=== PATIENT | female | born 1950 | race African-American/Black ===

== ENCOUNTER 2017-04-11 06:41 | Outpatient (CLI) | payer MEDICARE ==
[~2017-04-11] VITALS: Ht 162.6 cm; Wt 74.8 kg
[2017-04-11] VITALS (11 sets, daily range): BP systolic 90–184; BP diastolic 82–111
[~2017-04-11 06:41] MED LIST: AMLO5TAB2 PO; CRESTOR20 MG PO; LEVO125T5 PO; METF500T4 PO; POTA10TA5 PO; SIMV40TA3 PO; [UNRECOGNIZED DRUG - CODE]
[2017-04-11] MEDS ORDERED: MILK1TAB PO (07:19)
[2017-04-11] MEDS ORDERED: LEVO50TA5 PO (07:19)
[2017-04-11] MEDS ORDERED: METO25TA4 PO (07:19)
[2017-04-11] MEDS ORDERED: LOSA100T6 PO (07:19)
[2017-04-11] MEDS ORDERED: MULT-91 PO (07:19)
[2017-04-11 07:58] LABS: BASO % 1 % (0-3); EOS % 2 % (0-3); HEMATOCRIT 36.2 % (36.0-47.0); HEMOGLOBIN 12.1 g/dL (12.0-15.5); LYMPH # 1.7 x10^3/uL (1.0-4.8); LYMPH % 43 % (24-48); MEAN CORPUSCULAR HEMOGLOBIN 30 pg (25-35); MEAN CORPUSCULAR HGB CONC 34 g/dL (31-37); MEAN CORPUSCULAR VOLUME 89 fL (79-100); MONO % 8 % (0-9); NEUT % 46 % (31-73); PLATELET COUNT 254 x10^3/uL (140-400); RED BLOOD COUNT 4.06 x10^6/uL (3.50-5.40); RED CELL DISTRIBUTION WIDTH 15.6 % (11.5-14.5)
[2017-04-11 07:59] LABS: PROTHROMBIN TIME PATIENT 12.5 SEC (11.7-14.0)
[2017-04-11] MEDS ORDERED: MIDAZOLAM HCL/PF 5 MG/5 ML VIAL. ONE (08:05)
[2017-04-11] MEDS ORDERED: LIDOCAINE 1% / SOD BICARB 8.4% 20 ML VIAL. IJ ONE ×2 (08:05→09:00)
[2017-04-11] MEDS ORDERED: fentaNYL PF VIAL 250 MCG/5 ML VIAL ONE (08:05)
[2017-04-11] MEDS ORDERED: MIDAZOLAM HCL/PF 5 MG/5 ML VIAL. IV ONE ×2 (08:45→09:00)
[2017-04-11] MEDS ORDERED: fentaNYL PF VIAL 250 MCG/5 ML VIAL IV ONE (09:00)
--- NOTE | 2017-04-11 09:10 | PDOC ---
MODERATE SEDATION ASSESSMENT RISKS/ALTERNATIVES Risks/Alternatives Risks and alternatives of this type of sedation and procedure discussed with: RISK/ALTERNATIVES: Patient H & P ON CHART H & P H & P on chart and reviewed for co-morbid conditions and appropriate labs. H&P ON CHART: Yes STATUS PREG STATUS ASSESSED: N/A MEDS/ALLERGIES REVIEWED Meds/Allergies Reviewed Medications and Allergies including time and route of recently administered narcotics and sedatives. MEDS/ALLERGIES REVIEWED: Yes ASA RATING ASA RATING: II AIRWAY ASSESSMENT Airway Assessment Airway patency, oral function limitations, presence of caps, crowns, dentures, partials, and ability to extend neck assessed. AIRWAY ASSESSMENT: Yes MALLAMPATI SCORE MALLAMPATI SCORE: II PRE-SEDATION ASSESSMENT PRE-SEDATION ASSESSMENT: Yes DAISHA HAYES MD Apr 11, 2017 09:10
--- NOTE | 2017-04-11 09:13 | PDOC1 ---
History and Physical Date of Procedure Date of Admission 04/11/17 Procedure Procedure Image guided liver bx Indication Indication 66 YO diabetic female with elevated LFTs Past Medical History Past Medical History See Nursing Pre Procedure PMH Past Surgical History Past Surgical History See Nursing Pre Procedure PSH Current Medications Current Medications Current Medications Lidocaine/Sodium Bicarbonate (Buffered Lidocaine 1%) 20 ml STK-MED ONCE IJ ; Start 04/11/17 at 08:05; Stop 04/11/17 at 08:06; Status DC Midazolam HCl (Versed) 5 mg STK-MED ONCE .ROUTE ; Start 04/11/17 at 08:05; Stop 04/11/17 at 08:06; Status DC Fentanyl Citrate (Fentanyl 5ml Vial) 250 mcg STK-MED ONCE .ROUTE ; Start at 08:05; Stop 04/11/17 at 08:06; Status DC Lidocaine/Sodium Bicarbonate (Buffered Lidocaine 1%) 20 ml 1X ONCE IJ Last administered on 04/11/17 09:05; Start 04/11/17 at 09:00; Stop 04/11/17 at 09:01 ; Status DC Midazolam HCl (Versed) 20 mg 1X ONCE IV ; Start 04/11/17 at 09:00; Stop at 09:01; Status DC Fentanyl Citrate (Fentanyl 5ml Vial) 100 mcg 1X ONCE IV Last administered on 09:07; Start 04/11/17 at 09:00; Stop 04/11/17 at 09:01; Status DC Active Scripts Active Reported Liver Complex Tablet (Milk Thistle/Nac/Dandel/Turmer) 1 Each Tablet 1 Each PO DAILY One Daily (Multivitamin) 1 Each Tablet 1 Each PO DAILY Levothyroxine Sodium 50 Mcg Tablet 50 Mcg PO DAILYAC Losartan Potassium 100 Mg Tablet 100 Mg PO DAILY Metoprolol Tartrate 25 Mg Tablet 25 Mg PO BID Metformin Hcl 500 Mg Tablet 1 Tab PO BID Allergies Allergies: Coded Allergies: No Known Drug Allergies (Unverified , 06/23/15) Physical Exam Vital Signs Vital Signs Date Time Temp Pulse Resp B/P (MAP) Pulse Ox O2 Delivery O2 Flow Rate FiO2 04/11/17 09:07 16 98 Room Air 04/11/17 09:02 52 04/11/17 08:59 4.0 04/11/17 07:31 98.3 165/111 (129) 98.3 Lungs: Clear to auscultation Heart: Regular rate Psych/Mental Status: Mental status NL Assessment Assessment Elevated LFTs Problems: Plan Plan Image guided liver bx DAISHA HAYES MD Apr 11, 2017 09:13
--- NOTE | 2017-04-11 09:15 | PDOC ---
Exam Cow Puncher Cow Puncher Marli Pre-Procedure Diagnosis Pre-Procedure Diagnosis 66 YO diabetic female with elevated LFTs Post-Procedure Diagnosis Post-Procedure Diagnosis Same Procedure Performed Procedure Performed CT guided liver bx Type of Anesthesia Type of Anesthesia Local + Mod sedation Estimated Blood Loss EBL: Minimal Specimens Specimans 3 18G core bx to path in formalin Condition of Patient Condition of Patient Stable. No apparent complication. Disposition Disposition Home from [facility] post recovery, if no problems. F/u with Dr Jain. Full report to follow. DAISHA HAYES MD Apr 11, 2017 09:15
--- NOTE | 2017-04-12 10:49 | RAD ---
CT-guided liver biopsy Indication: 66-year-old diabetic female with elevated LFTs of uncertain etiology. Image guided liver biopsy has been requested by GI. Anesthesia: 26 minutes moderate sedation was provided utilizing a total of 2 mg Versed and 100 mcg fentanyl, IV. The patient was appropriately monitored by a qualified independent observer throughout the time of moderate sedation. Consent: The procedure was explained in its entirety to the patient and/or the patient's designated insurance follow up representative by a member of the treatment team. This included a discussion of risks and benefits and acceptable alternatives to the procedure, as well as expected consequences of no treatment at all. Discussion of risks included, but was not limited to, those that are most frequent and those that are rare, but possibly severe or life-threatening, as well as the possibility of unforeseen complications. Procedure: Informed consent was obtained from the patient. She was placed supine on the CT scanner. Preliminary noncontrast CT images were obtained through liver. A skin site suitable for CT-guided biopsy of right lobe of liver was selected and marked. That area was prepped and draped in the usual sterile fashion. Conscious sedation was provided with IV Versed and fentanyl. Using aseptic technique, local anesthesia, and CT guidance, a 17-gauge guide needle was successfully introduced into posterior segment right lobe of liver. Three 18-gauge core biopsy samples were then obtained and were submitted in formalin to pathology. Hemostasis was achieved with autologous clot introduced through the biopsy guide needle, which was then removed. A sterile dressing was applied. Patient tolerated the procedure well without apparent complication. Completion CT images revealed no evidence of significant intraparenchymal, subcapsular, or perihepatic hemorrhage. Impression: Successful, uneventful CT-guided liver biopsy, as described. PQRS Compliance Statement: One or more of the following individualized dose reduction techniques was utilized for this procedure: 1. Automated exposure control. 2. Adjustment of MA and/or KV according to patient size. 3. Iterative reconstruction technique.
== END 2017-04-11 11:02 | disposition home or self-care (01) ==
LOC: INTRAD 06:41
PROVIDERS: ATTEND Internal Medicine Gastroenterology
DX: R79.89 Other specified abnormal findings of blood chemistry (principal); I10 Essential (primary) hypertension; E03.9 Hypothyroidism, unspecified; E11.9 Type 2 diabetes mellitus without complications; Z86.39 Personal history of other endocrine, nutritional and metabolic disease
CPT/HCPCS: 36415; 47000; 77012; 85027; 85610; C1892; J3010

== ENCOUNTER → 2017-05-28 | Outpatient (CLI) | payer MEDICARE ==
[~2017-05-28] MED LIST changes: +AMLO10TA2 PO; +LEVO50TA5 PO; +LIDOCAINE 1% / SOD BICARB 8.4% 20 ML VIAL. IJ ONE; +LIDOCAINE 2%/EPI 1:100,000 20 ML VIAL. IJ ONE; +LOSA100T6 PO; +METO25TA4 PO; +MILK1TAB PO; +MULT-91 PO; +URSO250T9 PO
[2017-05-28 11:34] VITALS: BP 140/90
--- NOTE | 2017-05-29 14:34 | PATHOLOGY ---
PATHOLOGY REPORT * * * * * * * * FINAL DIAGNOSIS: Breast tissue, right breast needle biopsy: - Small ancient fibroadenoma, with associated calcifications. - Mild duct ectasia and periductal stromal fibrosis, focal. COMMENT: There is no evidence of malignancy. (JPM:mgr; 05/29/2017) REPORT ELECTRONICALLY SIGNED BY: Nitin Soares M.D. DATE/TIME: 05/29/2017 14:33 * * * * * * * * GROSS PATHOLOGY: Received in formalin labeled "Emery Dash, right breast," are multiple needle cores of yellow-phillips fibrofatty tissue measuring 0.8 x 0.6 x 0.4 cm in aggregate dimensions. Also received is a plastic cassette containing multiple cores of yellow-phillips fibrofatty tissue measuring 1.9 x 1.5 x 0.6 cm in aggregate dimensions. The tissue in the cassette is transferred to cassette A1, and the remaining tissue is submitted in its entirety in cassette A2. The cold ischemic time is 6 minutes. The total formalin fixation time is 11 hours and 21 minutes. (JPM; 05/28/17) INITIAL CPT CODE(S): A; 72914 Professional services performed by [email or web address] [address] Technical services performed by [facility] at [address] [place] [address], [facility] [address] [address]. SPECIMEN(S) RECEIVED: A.Right breast calcifications CLINICAL HISTORY: Right breast calcifications PATIENT: EMERY DASH /AGE: 9 1950 (Age: 66) PATIENT #: [id number] ALT CASE #: SPECIMEN COLLECTION DATE: 05/28/2017 SPECIMEN RECEIVED DATE: 05/28/2017 [facility] - [address] [place] [address] - PHONE: [phone] * * * END OF REPORT * * *
--- NOTE | 2017-05-30 10:18 | RAD ---
Stereotactic right breast biopsy, 05/28/2017: History: Suspicious microcalcifications Outside mammograms demonstrated a cluster of suspicious microcalcifications in the right breast. A a preliminary straight lateral-medial view of the right breast performed today is correlated with outside images and shows that these calcifications lie inferolaterally at approximately the 7:00 location. Under local anesthesia, aseptic conditions and mammographic guidance the the vacuum-assisted biopsy instrument was passed into this region via a lateral approach. Multiple 19-gauge core samples were obtained. Digital specimen mammography showed that the targeted microcalcifications are present within the specimens. A biopsy marker was then deposited at the biopsy site. The biopsy instrument was removed and hemostasis obtained. Two-view postprocedural mammograms were obtained to document position of the biopsy marker. The targeted microcalcifications appear to have been completely removed. There are other scattered residual microcalcifications in other portions of the right breast. The patient tolerated the procedure well and left the department in good condition. The subsequent pathology report indicated the presence of a fibroadenoma with associated calcifications. The findings are considered to be concordant.
== END | disposition home or self-care (01) ==
LOC: MAMMO 11:07
PROVIDERS: ATTEND Surgery
DX: R92.8 Other abnormal and inconclusive findings on diagnostic imaging of breast (principal)
CPT/HCPCS: 19085; 77022; C1713; G0206; J3490; 77065

== ENCOUNTER 2017-07-07 06:46 | Emergency (ER) | payer MEDICARE ==
[~2017-07-07] VITALS: Ht 162.6 cm; Wt 74.8 kg
[~2017-07-07 06:46] MED LIST changes: -LIDOCAINE 1% / SOD BICARB 8.4% 20 ML VIAL. IJ ONE; -LIDOCAINE 2%/EPI 1:100,000 20 ML VIAL. IJ ONE; +MULT-223 PO; -MULT-91 PO
[2017-07-07 07:01] VITALS: BP 162/94
[2017-07-07] MEDS ORDERED: IBUP-1007 PO (07:11)
--- NOTE | 2017-07-07 07:11 | PHYS DOC ---
Past Medical History Past Medical History: Diabetes-Type II, Hypertension, Hypothyroid Past Surgical History: No Surgical History Alcohol Use: None Drug Use: None Adult General Chief Complaint Chief Complaint: HIP PAIN HPI HPI Patient is a 66 year old female who presents with left hip pain for 1 week. No known injury. Worsens with walking and laying on that side. She denies falls/trauma/fevers. She has not attempted any oral symptom controlling medication. You rubbed "muscle cream" over the affected area with some relief. Denies allergies to medication. She has not contacted her primary care physician, Dr. Marin, regarding the symptoms. Denies known history of arthritis, no redness or hotness over the area. Review of Systems Review of Systems Constitutional: Denies fever or chills [] Eyes: Denies change in visual acuity, redness, or eye pain [] HENT: Denies nasal congestion or sore throat [] Respiratory: Denies cough or shortness of breath [] Cardiovascular: denies chest pain GI: Denies abdominal pain, nausea, vomiting, bloody stools or diarrhea [] : Denies dysuria or hematuria [] Musculoskeletal: Denies back pain Integument: Denies rash or skin lesions [] Neurologic: Denies headache, focal weakness or sensory changes [] Allergies Allergies Allergies Coded Allergies Type Severity Reaction Last Updated Verified No Known Drug Allergies 06/23/15 No Physical Exam Physical Exam Constitutional: Well developed, well nourished, no acute distress, non-toxic appearance. [] HENT: Normocephalic, atraumatic, bilateral external ears normal, oropharynx moist, no oral exudates, nose normal. [] Eyes: PERRLA, EOMI, conjunctiva normal, no discharge. [] Neck: Normal range of motion, no tenderness, supple, no stridor. [] Cardiovascular:Heart rate regular with regular rhythm, no murmur [] Lungs & Thorax: Bilateral breath sounds clear to auscultation , no wheeze or crackles Abdomen: soft, no tenderness, no masses, no pulsatile masses. [] Skin: Warm, dry, no erythema, no rash. [] Back: No tenderness, no CVA tenderness, no SI joint ttp Extremities: No tenderness, no cyanosis, no clubbing, ROM intact, no edema. DP pulses intact bilaterally, wiggles toes, 5/5 bilateral hip flexors, pelvis stable, no point tenderness over the left hip area to palpation. Neurologic: Alert and oriented X 3, normal motor function, normal sensory function, no focal deficits noted. Pt is able to ambulate without assistance, favors the left hip when she walks Psychologic: Affect normal, judgement normal, mood normal. [] EKG EKG [] Radiology/Procedures Radiology/Procedures [] Course & Med Decision Making Course & Med Decision Making Pertinent Labs and Imaging studies reviewed. (See chart for details) without injury or fall, no ttp of the hip, amble to ambulate a bony defect is unlikely and favors a bursitis of the hip. I recommended antiinflammatories, ice packs over the area, lidoderm patch for local anagelsia. Strict return precautions given if she has worse symptoms, inability to walk, develops a fever , inability to move hip 2/2 to pain. She's to call Dr. Marin today to schedule follow-up appointment. Take ibuprofen scheduled for 3 days and then as needed. Lidoderm patch RX given, apply ice packs. Dragon Disclaimer Dragon Disclaimer This electronic medical record was generated, in whole or in part, using a voice recognition dictation system. Departure Departure Impression: Primary Impression: Hip pain, left Disposition: HOME, SELF-CARE Condition: STABLE Referrals: LORENZO MARIN MD (PCP) Patient Instructions: Hip Bursitis Scripts Ibuprofen (IBUPROFEN) 600 Mg Tablet 600 MG PO PRN Q6HRS Y for PAIN, #20 TAB take with food or milk Prov: ANA LIM MD 07/07/17 ANA LIM MD Jul 07, 2017 07:11
[2017-07-07] MEDS ORDERED: LIDOCAINE 5% TP (07:13)
[2017-07-07] MEDS ORDERED: KETOROLAC 60 MG/2 ML INJ. IM ONE (07:30)
[2017-07-07] MEDS ORDERED: LIDOCAINE (700MG/PATCH) PATCH. TD ONE (07:30)
== END 2017-07-07 07:25 | disposition home or self-care (01) ==
LOC: ER 06:46
DX: M25.552 Pain in left hip (principal); E11.9 Type 2 diabetes mellitus without complications; E03.9 Hypothyroidism, unspecified
CPT/HCPCS: 96372; 99283; J1885

== ENCOUNTER 2018-05-31 01:01 | Emergency (ER) | payer MEDICARE ==
[2018-05-31 02:26] LABS: ADD MAN DIFF? NO
[2018-05-31 02:29] LABS: BASO # 0.1 x10^3/uL (0.0-0.2); BASO % 2 % (0-3); EOS # 0.1 x10^3/uL (0.0-0.7); EOS % 2 % (0-3); HEMATOCRIT 35.7 % (36.0-47.0); HEMOGLOBIN 12.3 g/dL (12.0-15.5); LYMPH # 2.1 x10^3/uL (1.0-4.8); LYMPH % 41 % (24-48); MEAN CORPUSCULAR HEMOGLOBIN 29 pg (25-35); MEAN CORPUSCULAR HGB CONC 35 g/dL (31-37); MEAN CORPUSCULAR VOLUME 85 fL (79-100); MONO # 0.5 x10^3/uL (0.0-1.1); MONO % 9 % (0-9); NEUT # 2.4 x10^3uL (1.8-7.7); NEUT % 47 % (31-73); PLATELET COUNT 262 x10^3/uL (140-400); RED BLOOD COUNT 4.22 x10^6/uL (3.50-5.40); RED CELL DISTRIBUTION WIDTH 15.6 % (11.5-14.5); WHITE BLOOD COUNT 5.3 x10^3/uL (4.0-11.0)
[2018-05-31] MEDS: IV NORMAL SALINE 1000ML BAG 1,000 ML IV (02:30)
[2018-05-31 02:54] LABS: ANION GAP 11 (6-14); BLOOD UREA NITROGEN 13 mg/dL (7-20); BUN/CREATININE RATIO 14 (6-20); CALCIUM 9.2 mg/dL (8.5-10.1); CARBON DIOXIDE 26 mmol/L (21-32); CHLORIDE 102 mmol/L (98-107); CREATININE 0.9 mg/dL (0.6-1.0); GFR 75.3; GLUCOSE 133 mg/dL (70-99); POTASSIUM 3.4 mmol/L (3.5-5.1); SODIUM 139 mmol/L (136-145)
[2018-05-31 02:59] LABS: ALBUMIN 3.3 g/dL (3.4-5.0); ALBUMIN/GLOBULIN RATIO 0.6 (1.0-1.7); ALK PHOS 145 U/L (46-116); ALT (SGPT) 104 U/L (14-59); AST (SGOT) 49 U/L (15-37); LIPASE 157 U/L (73-393); TOTAL BILIRUBIN 0.6 mg/dL (0.2-1.0); TOTAL PROTEIN 8.7 g/dL (6.4-8.2)
[2018-05-31 03:44] LABS: BILIRUBIN,URINE NEGATIVE (NEG); CLARITY,URINE CLEAR; COLOR,URINE YELLOW; GLUCOSE,URINE NEGATIVE (NEG); NITRITE,URINE NEGATIVE (NEG); PH,URINE 6.5; PROTEIN,URINE NEGATIVE (NEG-TRACE)
[2018-05-31] MEDS: MECLIZINE HCL 12.5 MG TABLET. PO (03:47)
[2018-05-31 04:08] LABS: BACTERIA,URINE 0 /HPF (0-FEW); RBC,URINE 0 /HPF (0-2); SQUAMOUS EPITHELIAL CELL,UR OCC /LPF; WBC,URINE 0 /HPF (0-4)
== END 2018-05-31 05:46 | disposition home or self-care (01) ==
LOC: ER 01:01
DX: R42 Dizziness and giddiness (principal); J06.9 Acute upper respiratory infection, unspecified; R11.2 Nausea with vomiting, unspecified; R19.7 Diarrhea, unspecified; E03.9 Hypothyroidism, unspecified; I10 Essential (primary) hypertension; E11.9 Type 2 diabetes mellitus without complications
CPT/HCPCS: 36415; 70450; 71045; 80053; 81001; 83690; 85025; 93005; 96360; 96361; 96365; 99285-25; J7030; J8597

== ENCOUNTER 2018-06-08 17:59 | Emergency (ER) | payer MEDICARE, OTHER ==
[~2018-06-08] VITALS: Ht 162.6 cm; Wt 81.6 kg
[~2018-06-08 17:59] MED LIST changes: +IBUP-1007 PO; +LIDOCAINE 5% TP; +MECL12.52 PO; -METF500T4 PO; +METF500T5 PO; +POTA10TA12 PO; -POTA10TA5 PO
[2018-06-08 18:48] VITALS: BP 130/78
[2018-06-08] MEDS ORDERED: HYDROcodone/APAP 5/325MG 1 TAB TABLET PO ONE (19:15)
[2018-06-08] MEDS ORDERED: CYCL10TA2 PO (19:53)
[2018-06-08] MEDS ORDERED: HYDR-971 PO (19:53)
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
== END 2018-06-08 19:59 | disposition home or self-care (01) ==
LOC: ER 17:59
DX: M54.6 Pain in thoracic spine (principal); M25.561 Pain in right knee; E11.9 Type 2 diabetes mellitus without complications; I10 Essential (primary) hypertension; E03.9 Hypothyroidism, unspecified; V43.92XA Unspecified car occupant injured in collision with other type car in traffic accident, initial encounter; Y93.89 Activity, other specified; Y92.89 Other specified places as the place of occurrence of the external cause; Y99.8 Other external cause status
CPT/HCPCS: 72072; 73562; 99284

== ENCOUNTER → 2020-06-06 | Outpatient (CLI) | payer MEDICARE ==
[2020-02-27 11:00] VITALS: BP 171/92
[~2020-06-06] MED LIST changes: -AMLO10TA2 PO; +AMLO10TA8 PO; +AMLO5TAB10 PO; -AMLO5TAB2 PO; +ASPI-630 PO; +CYCL10TA2 PO; +HYDR-3164 PO; +HYDR12.58 PO; +LEVO112T49 PO; +LOSA-73 PO; +LOSA100T14 PO; -LOSA100T6 PO; -MECL12.52 PO; +MECL12.573 PO; +METF500T16 PO; -METF500T5 PO; -MULT-223 PO; +MULT-629 PO; +PANT40TA77 PO; +POTA20TA4 PO; +SIMV40TA18 PO; -SIMV40TA3 PO
--- NOTE | 2020-06-06 11:54 | RAD ---
MR#: [id number] Date of Study: 06/06/2020 Ordering Physician: ENRIKE ALCALA, Referring Physician: HUGH SHEPHERD Tech: RT Bhavesh Ramirez) (N) APPROVED REPORT Test Type: Exercise Stress Nurse/Tech: Beth Sidhu RN Test Indications: Chest Pain Cardiac History: HTN, See EMR. Medications: ASA 81mg QD, See EMR. Medical History: DM, See EMR. Resting ECG: SR Resting Heart Rate: 56 bpm Resting Blood Pressure: 146/77mmHg Pretest Chest Pain: No chest pain Nurse/Tech Notes Lungs CTA, Heart tones regular. Consent: The procedure was explained to the patient in lay terms. Informed consent was witnessed. Mukul eout was entered into [employer]. History and Stress Test performed by RT Bhavesh De León) (N) Stress Symptoms Dyspnea POST EXERCISE Reason for Termination: Patient request Target HR: Yes Max HR: 125 bpm 98% of Maximum Predicted HR: 127 bpm Exercise duration: 6:03 min:sec, 3 Stage Exercise capacity: 10.0METs Max Blood Pressure: 160/94mmHg Blood Pressure response to exercise: Normal blood pressure response during stress. Heart Rate response to exercise: WNL Chest Pain: No. Arrhythmia: No. ST Change: No. INTERPRETATION Stress EKG Conclusion: No evidence of stress induced EKG changes Imaging Protocol IMAGE PROTOCOL: Rest Tc-99m/stress Tc-99m 1 day Rest: Stress: Viability: Radiopharm.Tc99m [id number] Sestamibi Dose10.5mCi 29mCi Duration 13min. 13min. Img Date 06/06/2020 06/06/2020 Inj-Img [id number]. 60min. Rest Admin Site:IV - Left AntecubitalAdministrator: RT Bhavesh Ramirez)(N) Stress Admin Site: IV - Left AntecubitalAdministrator: RT Bhavesh De León)(N) STRESS DATA End Diast. Vol.53.0mlAv. Heart Rate79.0bpm End Syst. Vol.4.0mlCO Index BSA0.0L/min Myocardial Ivfs448.0gEject. Ysslemev64.0% Stress Rates Pk. Fill Rate4.30EDV/secLVtime Pk. Fill 213.64msec Pk. Empty Rate5.95ESV/secLVtime Pk. Xgmmq415.48msec / Pk. Fill0.73EDV/sec Stress Scores Regional WT0.00Summed WT1.00 Regional WM0.00Summed WM0.00 The rest and stress images show normal perfusion, normal contraction and thickening. LV Perf. Quant 17 Seg. SSS0.00 17 Seg. SRS0.00 17 Seg. SDS0.00 Stress Defect Extent (% LAD)0.00Rest Defect Extent (% LAD)0.00Rev. Defect Extent (% LAD)0.00 Stress Defect Extent (% LCX) 0.00Rest Defect Extent (% LCX)0.00Rev. Defect Extent (% LCX)0.00 Stress Defect Extent (% RCA)0.00Rest Defect Extent (% RCA)0.00Rev. Defect Extent (% RCA)0.00 Stress Defect Extent (% ENA)0.00Rest Defect Extent (% ENA)0.00Rev. Defect Extent (% ENA)0.00 Other Information Quality:Good Risk Assessment: Low Risk Conclusion 1. No evidence of stress induced EKG changes. 2. Normal perfusion at stress/rest. 3. Normal EF at > 70% 4. Low risk study. Signed by : Iain Townsend, Electronically Approved : 06/06/2020 11:54:11
== END | disposition home or self-care (01) ==
LOC: NM 08:14
PROVIDERS: ATTEND Internal Medicine Cardiovascular Disease
DX: I10 Essential (primary) hypertension (principal); R07.9 Chest pain, unspecified
CPT/HCPCS: 78452; 93017; A9500

== ENCOUNTER 2020-08-07 23:22 | Emergency (ER) | payer MEDICARE ==
[~2020-08-07] VITALS: Ht 154.9 cm; Wt 68.0 kg
[~2020-08-07 23:22] MED LIST changes: +AMLO-186 PO; +AMLO-187 PO; -AMLO10TA8 PO; -AMLO5TAB10 PO; +URSO250T10 PO; -URSO250T9 PO
[2020-08-08 00:49] LABS: BASO # 0.1 x10^3/uL (0.0-0.2); BASO % 2 % (0-3); EOS # 0.1 x10^3/uL (0.0-0.7); EOS % 3 % (0-3); HEMATOCRIT 31.7 % (36.0-47.0); HEMOGLOBIN 10.8 g/dL (12.0-15.5); LYMPH % 45 % (24-48); MEAN CORPUSCULAR HEMOGLOBIN 29 pg (25-35); MEAN CORPUSCULAR HGB CONC 34 g/dL (31-37); MEAN CORPUSCULAR VOLUME 87 fL (79-100); MONO # 0.4 x10^3/uL (0.0-1.1); MONO % 10 % (0-9); NEUT # 1.8 x10^3/uL (1.8-7.7); NEUT % 41 % (31-73); PLATELET COUNT 307 x10^3/uL (140-400); RED BLOOD COUNT 3.66 x10^6/uL (3.50-5.40); RED CELL DISTRIBUTION WIDTH 14.8 % (11.5-14.5); WHITE BLOOD COUNT 4.4 x10^3/uL (4.0-11.0)
[2020-08-08 00:58] LABS: PROTHROMBIN TIME PATIENT 11.8 SEC (11.7-14.0)
[2020-08-08 01:00] LABS: CALCIUM 9.3 mg/dL (8.5-10.1); CREATININE 1.2 mg/dL (0.6-1.0); GFR 53.6; POTASSIUM 3.8 mmol/L (3.5-5.1)
[2020-08-08 01:02] LABS: D-DIMER 0.37 ug/mlFEU (0.00-0.50)
[2020-08-08 01:06] LABS: ALBUMIN 3.1 g/dL (3.4-5.0); ALBUMIN/GLOBULIN RATIO 0.6 (1.0-1.7); MAGNESIUM 2.1 mg/dL (1.8-2.4); TOTAL BILIRUBIN 0.6 mg/dL (0.2-1.0); TOTAL PROTEIN 8.4 g/dL (6.4-8.2)
--- NOTE | 2020-08-08 01:45 | PHYS DOC ---
Past Medical History Past Medical History: Diabetes-Type II, Hypertension, Hypothyroid Past Surgical History: No Surgical History Smoking Status: Former Smoker Alcohol Use: None Drug Use: None General Adult EDM: Chief Complaint: SHOUDLER HPI: HPI: Patient is a 70 year old female who presented to ER for evaluation of right mid upper back pain started 2 days ago when she woke up from sleep. Patient described the pain as dull aching, pressure .. Patient denies any cough or fever. Patient denied trouble breathing patient denied any chest pain. Patient denies any injury. The pain did not get worse or better with cough or movement of her ribs. Patient denies any rash or itching. Review of Systems: Review of Systems: Constitutional: Denies fever or chills. [] Eyes: Denies change in visual acuity. [] HENT: Denies nasal congestion or sore throat. [] Respiratory: Denies cough or shortness of breath. [] Cardiovascular: Denies chest pain or edema. [] GI: Denies abdominal pain, nausea, vomiting, bloody stools or diarrhea. [] : Denies dysuria. [] Musculoskeletal: Positive for mid upper back pain, no joint pain. Integument: Denies rash. [] Neurologic: Denies headache, focal weakness or sensory changes. [] Endocrine: Denies polyuria or polydipsia. [] Lymphatic: Denies swollen glands. [] Psychiatric: Denies depression or anxiety. [] Heart Score: Risk Factors: Risk Factors: DM, Current or recent (<one month) smoker, HTN, HLP, family history of CAD, obesity. Risk Scores: Score 0 - 3: 2.5% MACE over next 6 weeks - Discharge Home Score 4 - 6: 20.3% MACE over next 6 weeks - Admit for Clinical Observation Score 7 - 10: 72.7% MACE over next 6 weeks - Early Invasive Strategies Allergies: Allergies: Allergies Coded Allergies Type Severity Reaction Last Updated Verified No Known Drug Allergies 06/23/15 No Physical Exam: PE: Constitutional: Well developed, well nourished, no acute distress, non-toxic appearance. [] HENT: Normocephalic, atraumatic, bilateral external ears normal, oropharynx moist, no oral exudates, nose normal. [] Eyes: PERRLA, EOMI, conjunctiva normal, no discharge. [] Neck: Normal range of motion, no tenderness, supple, no stridor. [] Cardiovascular:Heart rate regular rhythm, no murmur [] Lungs & Thorax: Bilateral breath sounds clear to auscultation. An area just lateral to MID THORACIC AND BELOW RIGHT SCAPULA is tender to palpation, no swelling, no rash, no crepitus. The pain area is not crossing midline. Abdomen: Bowel sounds normal, soft, no tenderness, no masses, no pulsatile masses. [] Skin: Warm, dry, no erythema, no rash. There is no rash noted. Back: No tenderness, no CVA tenderness. [] Extremities: No tenderness, no cyanosis, no clubbing, ROM intact, no edema. [] Neurologic: Alert and oriented X 3, normal motor function, normal sensory function, no focal deficits noted. [] Psychologic: Affect normal, judgement normal, mood normal. [] Current Patient Data: Labs: Laboratory Tests Test 08/08/20 00:40 White Blood Count 4.4 x10^3/uL (4.0-11.0) Red Blood Count 3.66 x10^6/uL (3.50-5.40) Hemoglobin 10.8 g/dL (12.0-15.5) L Hematocrit 31.7 % (36.0-47.0) L Mean Corpuscular Volume 87 fL (79-100) Mean Corpuscular Hemoglobin 29 pg (25-35) Mean Corpuscular Hemoglobin Concent 34 g/dL (31-37) Red Cell Distribution Width 14.8 % (11.5-14.5) H Platelet Count 307 x10^3/uL (140-400) Neutrophils (%) (Auto) 41 % (31-73) Lymphocytes (%) (Auto) 45 % (24-48) Monocytes (%) (Auto) 10 % (0-9) H Eosinophils (%) (Auto) 3 % (0-3) Basophils (%) (Auto) 2 % (0-3) Neutrophils # (Auto) 1.8 x10^3/uL (1.8-7.7) Lymphocytes # (Auto) 2.0 x10^3/uL (1.0-4.8) Monocytes # (Auto) 0.4 x10^3/uL (0.0-1.1) Eosinophils # (Auto) 0.1 x10^3/uL (0.0-0.7) Basophils # (Auto) 0.1 x10^3/uL (0.0-0.2) Prothrombin Time 11.8 SEC (11.7-14.0) Prothrombin Time INR 0.9 (0.8-1.1) D-Dimer (Shannan) 0.37 ug/mlFEU (0.00-0.50) Sodium Level 136 mmol/L (136-145) Potassium Level 3.8 mmol/L (3.5-5.1) Chloride Level 103 mmol/L (98-107) Carbon Dioxide Level 25 mmol/L (21-32) Anion Gap 8 (6-14) Blood Urea Nitrogen 20 mg/dL (7-20) Creatinine 1.2 mg/dL (0.6-1.0) H Estimated GFR (Cockcroft-Gault) 53.6 BUN/Creatinine Ratio 17 (6-20) Glucose Level 125 mg/dL (70-99) H Calcium Level 9.3 mg/dL (8.5-10.1) Magnesium Level 2.1 mg/dL (1.8-2.4) Total Bilirubin 0.6 mg/dL (0.2-1.0) Aspartate Amino Transferase (AST) 94 U/L (15-37) H Alanine Aminotransferase (ALT) 170 U/L (14-59) H Alkaline Phosphatase 351 U/L (46-116) H Troponin I Quantitative < 0.017 ng/mL (0.000-0.055) WQ-Aty-F-Type Natriuretic Peptide 59 pg/mL (0-124) Total Protein 8.4 g/dL (6.4-8.2) H Albumin 3.1 g/dL (3.4-5.0) L Albumin/Globulin Ratio 0.6 (1.0-1.7) L Lipase 238 U/L (73-393) Laboratory Tests 08/08/20 00:40 Laboratory Tests 08/08/20 00:40 Vital Signs: Vital Signs Date Time Temp Pulse Resp B/P (MAP) Pulse Ox O2 Delivery O2 Flow Rate FiO2 08/07/20 23:35 97.9 73 18 146/88 (107) 99 Room Air 97.9 EKG: EKG: EKG was done 029, heart rate of 72 beats per minutes, normal sinus rhythm, no ST segment elevation. Radiology/Procedures: Radiology/Procedures: [][facility] [address] [place] [address] IMAGING REPORT Signed PATIENT: EMERY TITUS ACCOUNT: [id number] : 1950 LOCATION: ER AGE: 70 SEX: F EXAM STATUS: REG ER ORD. PHYSICIAN: GODWIN GRIFFIN DO REASON: CHEST PAIN PROCEDURE: PORTABLE CHEST 1V EXAM: PORTABLE CHEST 1V 08/08/2020 12:26 AM CLINICAL INDICATION: Chest pain COMPARISON: Chest radiograph 02/26/2020 TECHNIQUE: AP upright view of the chest FINDINGS: The heart and mediastinum are normal. Calcifications are in the thoracic aorta. Lungs are well-expanded and clear. No consolidation, pleural effusion, or pneumothorax. Pulmonary vascularity is normal. Mild bilateral acromioclavicular degenerative joint disease. IMPRESSION: No acute cardiopulmonary abnormality.. Electronically signed by: Bree Vargas MD (08/08/2020 2:14 AM) [id number] DICTATED and SIGNED BY: BREE VARGAS MD DATE: 08/08/20 0214 Course & Med Decision Making: Course & Med Decision Making Pertinent Labs and Imaging studies reviewed. (See chart for details) Patient is suspected to have preherpetic neuralgia on the right side upper back. There is no visible rash. Will start patient on antiviral therapy. She will need to follow up with her family doctor for reevaluation. Aristides Disclaimer: Aristides Disclaimer: This electronic medical record was generated, in whole or in part, using a voice recognition dictation system. Departure Departure Impression: Primary Impression: Back pain Disposition: 01 DC HOME SELF CARE/HOMELESS Condition: STABLE Referrals: LORENZO KIMBLE MD (PCP) FOLLOW UP WITH YOUR DOCTOR NEEDED THIS WEEK. RETURN IF YOU DEVELOP RASH ON YOUR BACK. IT MAYBE SHINGLE. Patient Instructions: Back Pain, Adult, Shingles Additional Instructions: Thank you for visiting our Emergency Department. We appreciate you trusting us with your care. If any additional problems come up don't hesitate to return to visit us. Please follow up with your primary care provider so they can plan additional care if needed and know about the problem that you had. If symptoms worsen come back to the Emergency Department. Any concerning symptoms that start such as chest pain, shortness of air, weakness or numbness on one side of the body, running high fevers or any other concerning symptoms return to the ER. Scripts Acyclovir (ACYCLOVIR) 800 Mg Tablet 1 TAB PO 5XDAY for 7 Days, #35 TAB Prov: GODWIN GRIFFIN DO 08/08/20 GODWIN GRIFFIN DO Aug 08, 2020 01:45
--- NOTE | 2020-08-08 02:17 | RAD ---
EXAM: PORTABLE CHEST 1V 08/08/2020 12:26 AM CLINICAL INDICATION: Chest pain COMPARISON: Chest radiograph 02/26/2020 TECHNIQUE: AP upright view of the chest FINDINGS: The heart and mediastinum are normal. Calcifications are in the thoracic aorta. Lungs are well-expanded and clear. No consolidation, pleural effusion, or pneumothorax. Pulmonary vascularity is normal. Mild bilateral acromioclavicular degenerative joint disease. IMPRESSION: No acute cardiopulmonary abnormality.. Electronically signed by: Bree Vargas MD (08/08/2020 2:14 AM) [id number]
[2020-08-08] MEDS ORDERED: ACYC800T PO (02:21)
[2020-08-08 02:30] VITALS: BP 161/80
[2020-08-08] MEDS ORDERED: KETOROLAC 30 MG/ML VIAL. IVP ONE (02:30)
--- NOTE | 2020-08-08 06:02 | EKG ---
[facility] [address] [place] [address] Test Date: 2020-08-08 Test Time: 00:29:06 Pat Name: EMERY TITUS Department: Room: Gender: F Mechanical Specialist: : 1950 Requested By: GODWIN GRIFFIN Order Number: [id number] Reading MD: Measurements Intervals [place] Rate: 72 P: 66 MN: 164 QRS: 10 QRSD: 72 T: 43 QT: 390 QTc: 429 Interpretive Statements SINUS RHYTHM NORMAL ECG RI6.02 No previous ECG available for comparison
== END 2020-08-08 02:35 | disposition home or self-care (01) ==
LOC: ER 23:22
DX: M54.6 Pain in thoracic spine (principal); E11.9 Type 2 diabetes mellitus without complications; I10 Essential (primary) hypertension; E03.9 Hypothyroidism, unspecified; Z87.891 Personal history of nicotine dependence
CPT/HCPCS: 36415; 71045; 80053; 83690; 83735; 83880; 84484; 85025; 85379; 85610; 93005; 96374; 99285; J1885

== ENCOUNTER → 2021-01-22 | Outpatient (CLI) | payer MEDICARE ==
[~2021-01-22] MED LIST changes: +ACYC800T PO; +BUPIVACAINE MPF 0.5% 30 ML VIAL. INJ ONE; -MECL12.573 PO; +MECL12.582 PO
--- NOTE | 2021-01-22 16:46 | RAD ---
Examination: 1. Right breast stereotactic biopsy. 2. Right digital post procedure mammogram. INDICATION: 70-year-old woman with calcifications in the upper outer right breast recommended for smita reotactic biopsy. COMPARISON: Bilateral screening mammogram of 01/01/2021 and right diagnostic mammogram of 01/01/2021. TECHNIQUE AND FINDINGS: Preprocedural pharmacy review identified a potential for interaction between the epinephrine in lidoc yesi with epinephrine intended for use as local anesthetic with patient's beta blockers. Decision was therefore made to use bupivacaine for deep soft tissue local anesthesia instead of lidocaine with ep inephrine. Informed consent was obtained and an appropriate procedural pause observed. Using standard sterile technique, stereotactic mammographic imaging guidance and local anesthesia, mu ltiple vacuum assisted core biopsy samples of a cluster of calcifications in the upper outer quadrant posterior right breast were obtained. Specimen radiograph confirmed presence of targeted calcificati ons in the sample. Patient did complain of some discomfort which was addressed with additional admini stration of local anesthetic to the biopsy site. A biopsy marker was deployed and hemostasis assured with direct breast compression for 10 minutes. Post procedure mammogram showed satisfactory deployment of the biopsy marker at the targeted site and the presence of a postbiopsy hematoma. Postprocedure instructions were provided and patient discharged in stable condition to follow her ref erring physician. IMPRESSION: Successful stereotactic biopsy of calcifications in the posterior upper outer right breast. Pathology results are pending. An addendum will be issued once pathology results become available. Electronically signed by: Mellissa Vegrara MD (01/22/2021 4:44 PM) [id number]
--- NOTE | 2021-01-25 13:08 | PATHOLOGY ---
[facility] Accession Number: [id number] . 01 Material submitted: . breast - RIGHT BREAST CALCS. Modifiers: right . 01 Clinical history: . MICRO KEV RT BREAST RIGHT BREAST STEREOTACTIC CALCS IN GRID . 02 Diagnosis: Breast "right", stereotactic biopsy: - Hyalinized fibroadenomatous change, with associated coarse microcalcification. - Rare foci of usual ductal hyperplasia, with associated finely stippled microcalcification. - Duct ectasia. - Adenosis. - Negative for atypia and malignancy. (MLK/db; 01/24/2021) LBQ 01/25/2021 1212 Local . 02 Comment: The case is seen in co-review with Dr. Nakul Hansen, who concurs with the above diagnosis. . 02 Electronically signed: . Yadira Gamble MD, Pathologist NPI- [id number] . 01 Gross description: . The specimen is received in formalin, labeled "Beau Dash, right breast tissue". Received within a plastic cassette are multiple needle cores of fibrofatty tissue measuring 3.4 x 2.9 x 0.6 cm in aggregate dimensions. The specimen is submitted entirely in cassettes A1 through A6. The cold ischemic time is 10 minutes. The total formalin fixation time is 30 hours and 55 minutes. (CAA; 01/23/2021) QAC/QAC 01/23/2021 1653 Local . 02 Pathologist provided ICD-10: N62, N60.41 . 02 CPT . 480306 Specimen Comment: A courtesy copy of this report has been sent to [phone], [phone] Specimen Comment: [id number], Specimen Comment: Report sent to ,DR NAGY / DR KIMBLE Performed at: 01 [facility] [address], [place], [place] [id number] MD Iban Sun MD Phone: [phone] Performed at: 02 [facility] [address] [place], [place] [id number] MD Nitin Soares MD Phone: [phone]
== END | disposition home or self-care (01) ==
LOC: MAMMO 13:17
PROVIDERS: ATTEND Surgery
DX: R92.1 Mammographic calcification found on diagnostic imaging of breast (principal); R92.8 Other abnormal and inconclusive findings on diagnostic imaging of breast; I10 Essential (primary) hypertension; E11.9 Type 2 diabetes mellitus without complications; E03.9 Hypothyroidism, unspecified; Z79.82 Long term (current) use of aspirin; Z79.84 Long term (current) use of oral hypoglycemic drugs; Z79.899 Other long term (current) drug therapy; Z87.891 Personal history of nicotine dependence; Z98.890 Other specified postprocedural states
CPT/HCPCS: 19081; 77065; J3490